=== PATIENT | female | born 2005 | race Caucasian/White ===

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

== ENCOUNTER 2024-03-02 11:42 | Emergency (ER) | payer MEDICAID, SELFPAY ==
[2024-03-02 11:59] VITALS: BP 106/78; PULSE 92; RESP 18; TEMP 36.7; O2SAT 96; BMI 48.4
--- NOTE | 2024-03-02 11:59 | ED.GENADULT ---
HPI - General Adult General Chief complaint: Urogenital-Female Stated complaint: bleeding when urinating Time Seen by Provider: 03/02/24 12:17 Source: patient and family (mother) Mode of arrival: ambulatory Limitations: no limitations History of Present Illness ED Provider: Sangeeta Sne NP HPI narrative: Patient is a 18-year-old female presenting to the emergency department reporting that she noted blood on the toilet paper after wiping this morning but denies any episodes of this since. States LMP was one month ago but reports that her bleeding is typically very heavy at the onset. States her periods are also irregular at times and she is currently on OCPs. She denies dysuria but states that she felt she had to use more pressure than normal to urinate. She states that she is sure the blood came from her urethra as she wiped that area specifically, does not feel it was vaginal bleeding. Denies back or flank pain, fevers, nausea or vomiting. MD complaint: hematuria Onset (ago): hour(s) Treatments prior to arrival: none Related Data Allergies Allergy/AdvReac Type Severity Reaction Status Date / Time No Known Allergies Allergy Verified 03/02/24 12:00 Review of Systems Review of Systems: As per HPI. Yes all other systems are reviewed and are negative Constitutional: Constitutional: Reports as per HPI [facility] Social History Social History Advance Directives: No Advance Directives Information Provided: Yes Physical Exam ED Vital Signs: Vital Signs - 24 hr 03/02/24 11:59 03/02/24 12:57 Temperature 98.0 F 97 F Pulse Rate 92 74 Respiratory Rate 18 15 Blood Pressure 106/78 116/70 Pulse Oximetry 96 97 Oxygen Delivery Method Room Air Room Air BMI result Body Mass Index 48.4 Vital signs have been reviewed and appear to be correct. Blood pressure normal. Heart rate normal. Respiratory rate normal. Temperature normal. Oxygen saturation normal. Const General: cooperative, healthy appearing and no acute distress Orientation/consciousness: oriented to person, oriented to place, oriented to time and patient oriented x3 Limitations: no limitations HENMT Head: Yes normocephalic and Yes atraumatic Ears: external ears normal General nose exam: Normal external nose present Face and sinus: Yes face symmetric Mouth: oropharynx normal and moist mucous membranes Throat: Yes uvula midline Eyes Pupils: Equal, round and reactive pupils present Neck Neck: Yes normal visual inspection and Yes supple Resp Effort & Inspection: normal respiratory effort and able to speak in complete sentences Auscultation: clear to auscultation bilaterally Cardio Rate: regular rate Rhythm: regular rhythm Heart sounds: S1 normal heart sound present and S2 normal heart sound present GI Palpation (GI): Soft to palpation and nontender Auscultation: normoactive bowel sounds General: Yes no CVA tenderness Back/Spine/Pelvis Back: no CVA tenderness Skin General skin exam: elasticity normal and turgor normal Neuro General: oriented to person, oriented to place, oriented to time, patient oriented x3, moves all extremities, no focal motor deficits and CN's II-XI intact bilaterally Cranial nerves: Yes Equal, round and reactive pupils present Cognition (Neuro): normal cognition Extrem General: Yes full ROM, Yes no pedal edema and Yes no calf tenderness Psych Mental Status: mental status grossly normal Affect: normal affect Thought process: Normal thought process present Course Course Course Narrative: This is a rapid medical exam. deferred additional HPI, ROS, PE to primary provider. 18 yo female with no known medical history here with hematuria, dysuria since last evening. LMP 1 month ago. denies concern for . Will obtain UA, urine . LARA Hunter APRN Medical Decision Making Medical Decision Making [facility] Narrative: Patient is a 18-year-old female presenting to the emergency department reporting that she noted blood on the toilet paper after wiping this morning but denies any episodes of this since. On exam patient is awake, A+Ox3, VS WNL, afebrile, normal neurological exam without focal deficits, physical exam findings as above. Given reported symptoms and physical exam findings, initial differential includes UTI, menses, STI, spontaneous . Unlikely pyelonephritis or renal calculi as patient is without back/flank pain and has no CVA tenderness. Urinalysis notable for no blood, no leukocytes, negative nitrites. Patient declining pelvic exam/STI testing at this time. Discussed with patient that symptoms could be due to onset of menses. Instructed her to follow up with [facility] regarding irregular menses. Return precautions discussed. Patient verbalized understanding of and agreement with plan. Differential Diagnosis Differential Diagnoses: The differential diagnosis associated with the presentation includes As per [facility]. Lab Data [facility] Lab Attestation statement: I reviewed the patient's lab results. As per [facility]. Labs: Lab Results 03/02/24 Range/Units 12:34 Urine Color Yellow Urine Appearance Clear Urine pH 6.5 (5.0-9.0) Ur Specific [place] 1.020 (1.005-1.025) Urine Protein Negative (Neg-Trace) mg/dL Urine Glucose (UA) Negative (Negative) mg/dL Urine Ketones Negative (Negative) mg/dL Urine Blood Negative (Negative) Urine Nitrite Negative (Negative) Ur Leukocyte Esterase Negative (Negative) Urine Test NEGATIVE (NEGATIVE) Independent Historian Clinical information obtained from an independent historian. History obtained from or confirmed by: Parent External Record Review External record reviewed: Inpatient record, Office record and Outpatient record Discharge Plan Discharge Clinical Impression: Painless hematuria Patient Disposition: Home, Self-Care Instructions: Hematuria (ED) Additional Instructions: You were evaluated in the emergency department today for blood in your urine. Your urinalysis did not show evidence of blood or infection. It is possible that this is the beginning of your menstrual period. We recommend that you follow-up with your [facility] or primary care provider. Return to the emergency department if you develop increasing episodes of blood in your urine, have difficulty or are unable to urinate, develop fever, or persistent vomiting, or any other concerning symptoms. Print Language: Amharic
[2024-03-02 12:44] LABS: Appearance Urine Clear; Color Urine Yellow; Glucose Urine UA Negative (Negative); Leukocyte Esterase Urine Negative (Negative); Nitrite Urine Negative (Negative); PH 6.5 (5.0-9.0); UPreg QC Valid YES; Urine Blood Negative (Negative); Urine Ketones Negative (Negative); Urine Pregnancy NEGATIVE (NEGATIVE); Urine Protein Negative (Neg-Trace)
[2024-03-02 12:57] VITALS: BP 116/70; PULSE 74; RESP 15; TEMP 36.1; O2SAT 97
[2024-03-02 13:51] VITALS: BP 116/70; PULSE 74; RESP 15; TEMP 36.1; O2SAT 97
== END 2024-03-02 13:51 | disposition home or self-care (01) ==
PROVIDERS: Nurse Practitioner Family; Emergency Provider Emergency Medicine
DX: R31.9 Hematuria, unspecified (principal)
CPT/HCPCS: 81003; 81025; 99282; 99283